=== PATIENT | male | born 1970 | race Hispanic/Latino ===

== ENCOUNTER 2022-04-18 16:19 | Emergency (ER) | payer OTHER, SELFPAY ==
[2022-04-18 16:33] VITALS: BP 117/75; PULSE 75; RESP 16; TEMP 37.2; O2SAT 97; BMI 28.8
--- NOTE | 2022-04-18 17:03 | DI.CT.S_ITS ---
PROCEDURE: CT FACIAL BONES WO CON INDICATIONS: window fell on face. TECHNIQUE: Noncontrast 2.5 mm thick axial images acquired from the mandible through the frontal sinuses, with coronal and sagittal reformatting. For radiation dose reduction, the following was used: automated exposure control, adjustment of mA and/or kV according to patient size. COMPARISON: None. FINDINGS: Image quality: Excellent. Bones and teeth: Orbital grant are intact. Sinus grant show no fracture or deformity. Nasal bones and septum are intact. Visualized portions of the mandible demonstrate no fractures or subluxation. Zygomatic arches are intact. Pterygoid plates are intact. Visualized portions of the skull base and auditory canals are intact. Dental disease and periodontal disease are noted. Degenerative changes are seen in the included spine. Sinuses: There is opacification of the right maxillary sinus. Small mucous retention cyst or polyp in the left maxillary sinus. Partial opacification of the anterior ethmoid air cells on the right. Frontal sinuses are poorly pneumatized. The sphenoid sinuses are clear. The mastoid air cells are clear. Soft tissues: Soft tissue laceration is seen along the superior aspect of the nose with surrounding subcutaneous edema. A few tiny hyperdense foci along the skin surface in the frontal region may represent skin calcifications or tiny loose bodies. No radiopaque loose body is seen in the immediate vicinity of the laceration. Vascular: Visualized vascular structures appear normal in the absence of contrast. Bony vascular foramina and canals are intact. IMPRESSION: 1. Soft tissue laceration is seen along the superior aspect of the nose. No underlying osseous fracture is seen. No radiopaque foreign body in the vicinity of the laceration. 2. Few tiny hyperdense foci along the skin surface in the left frontal scalp may represent skin calcifications or tiny foreign bodies. 3. Paranasal sinus disease. Dictated by: Mahesh Edward M.D. on 04/18/2022 at 17:36 Approved by: Mahesh Edward M.D. on 04/18/2022 at 17:41
--- NOTE | 2022-04-18 17:03 | DI.CT.S_ITS ---
PROCEDURE: CT HEAD/BRAIN WO CON INDICATIONS: window fell on face. TECHNIQUE: Noncontrast 4.5 mm thick angled axial sections acquired from the foramen magnum to the vertex, with coronal and sagittal reformats. For radiation dose reduction, the following was used: automated exposure control, adjustment of mA and/or kV according to patient size. COMPARISON: None. FINDINGS: Image quality: Excellent. CSF spaces: Basal cisterns are patent. No extra-axial fluid collections. Ventricles are normal in size and shape. Brain: No midline shift. No intracranial masses or hemorrhage. Porter-white matter interface is normal. Skull and face: Soft tissue edema is seen in the frontal scalp. Multiple small superficial hyperdense foci are seen along the skin surface in the bilateral frontal region, and small foreign bodies are not excluded. Visual bones are better demonstrated on the facial CT performed the same time. Calvarium is intact. Soft tissue laceration in the nose is partially imaged. Sinuses: There is complete opacification of the right maxillary sinus. A mucous retention cyst or polyp is seen in the left maxillary sinus. Mucosal thickening is seen in the right anterior ethmoid air cells. Frontal sinuses are poorly pneumatized. IMPRESSION: 1. No acute intracranial abnormality. 2. Mild frontal scalp soft tissue edema. Multiple hyperdense foci along the frontal skin surface may represent skin calcifications or tiny loose bodies. Dictated by: Mahesh Edward M.D. on 04/18/2022 at 17:29 Approved by: Mahesh Edward M.D. on 04/18/2022 at 17:36
[2022-04-18 20:43] VITALS: BP 117/79; PULSE 63; RESP 14; O2SAT 99
--- NOTE | 2022-04-18 22:11 | ED.WOUNDLAC ---
HPI - Wound/Laceration General Chief Complaint: Wound/Laceration Stated Complaint: facial trauma Time Seen by Provider: 04/18/22 22:11 Source: patient Mode of arrival: Ambulatory History of Present Illness HPI narrative: 52-year-old gentleman with no significant medical history was at work today helping lift window that was stacked the window slipped hitting him in the mid face. Has a large laceration over the bridge of his nose, a low-grade headache minor abrasion to the right maxilla. He does not complain of any abnormality when biting down and does not complain of maxillary pain when biting down. He notes that he has some mild musculoskeletal neck pain and points to his occipital processes bilaterally after the accident. He reports that recently he has been well with no fever, cough, chills no headaches no complaints of sinus fullness or discharge, cough abdominal pain vomiting or diarrhea. Related Data Allergies Allergy/AdvReac Type Severity Reaction Status Date / Time No Known Drug Allergies Allergy Verified 04/18/22 16:46 Review of Systems Review of Systems Narrative: Remainder of complete review of systems is otherwise unremarkable except for that included in the HPI. Patient History Social History Smoking Status: Never smoker Smoking Status: Never smoker alcohol intake frequency: 0-2 drinks per day Substance Use Type: marijuana Exam Initial Vital Signs Initial Vital Signs: Vital Signs Temperature 98.9 F 04/18/22 16:33 Pulse Rate 75 04/18/22 16:33 Respiratory Rate 16 04/18/22 16:33 Blood Pressure 117/75 04/18/22 16:33 Pulse Oximetry 97 04/18/22 16:33 Oxygen Delivery Method 04/18/22 16:33 General: Alert appropriate in no acute distress HEENT: Minor contusion and small abrasion over the forehead. 2.5 cm full-thickness laceration over the bridge of the nose with bleeding controlled. Minor abrasion over the distal portion of the nose. Minor abrasion over the right maxilla with no tenderness to the maxilla itself. Neck: Tenderness at occipital insertions bilaterally without midline C-spine tenderness. He does not have platysma muscle tenderness. Your cervical adenopathy Respiratory: Able to speak in full sentences, no obvious respiratory distress Skin: No obvious rashes, warm and dry Neurologic: Grossly intact no obvious asymmetries or abnormalities Psych: appropriate insight and affect, cooperative Procedures Laceration Repair Bridge of the nose: Time of procedure: 00:07 Site: face Size (cm): 2.5 Description: linear Depth: simple, single layer Local Anesthetic: lidocaine 1% and with epi Amount of anesthesia used (mL): 3 Pre-repair: wound explored and deep structures intact Skin layer closed with: nylon Skin layer suture size: 4-0 Number of sutures: 5 Technique: simple, interrupted Course Orders Ordered: ED Orders 04/18/22 17:03 CT facial bones wo con Stat CT head/brain wo con Stat Vital Signs Vital signs: Vital Signs - 8 hr 04/18/22 16:33 04/18/22 20:43 Temperature 98.9 F Pulse Rate 75 63 Respiratory Rate 16 14 Blood Pressure 117/75 117/79 Pulse Oximetry 97 99 Oxygen Delivery Method Room Air Room Air MDM - Wound/Laceration Imaging Data CT face and brain: Radiologist's Impression: FINDINGS:? Image quality:? Excellent.? ? Bones and teeth:? Orbital grant are intact.? Sinus grant show no fracture or deformity.? Nasal bones and septum are intact.? Visualized portions of the mandible demonstrate no fractures or subluxation.? Zygomatic arches are intact.? Pterygoid plates are intact.? Visualized portions of the skull base and auditory canals are intact.? Dental disease and periodontal disease are noted.? Degenerative changes are seen in the included spine. ? Sinuses:? There is opacification of the right maxillary sinus.? Small mucous retention cyst or polyp in the left maxillary sinus.? Partial opacification of the anterior ethmoid air cells on the right.? Frontal sinuses are poorly pneumatized.? The sphenoid sinuses are clear.? The mastoid air cells are clear.? ? Soft tissues:? Soft tissue laceration is seen along the superior aspect of the nose with surrounding subcutaneous edema.? A few tiny hyperdense foci along the skin surface in the frontal region may represent skin calcifications or tiny loose bodies.? No radiopaque loose body is seen in the immediate vicinity of the laceration.? ? Vascular:? Visualized vascular structures appear normal in the absence of contrast.? Bony vascular foramina and canals are intact.? ? IMPRESSION:? 1. Soft tissue laceration is seen along the superior aspect of the nose.? No underlying osseous fracture is seen.? No radiopaque foreign body in the vicinity of the laceration. 2. Few tiny hyperdense foci along the skin surface in the left frontal scalp may represent skin calcifications or tiny foreign bodies. 3. Paranasal sinus disease. ? ? Dictated by: Mahesh Edward M.D. on 04/18/2022 at 17:36 ? ? FINDINGS:? Image quality:? Excellent.? ? CSF spaces:? Basal cisterns are patent.? No extra-axial fluid collections.? Ventricles are normal in size and shape.? ? Brain:? No midline shift.? No intracranial masses or hemorrhage.? Porter-white matter interface is normal.? ? Skull and face:? Soft tissue edema is seen in the frontal scalp.? Multiple small superficial hyperdense foci are seen along the skin surface in the bilateral frontal region, and small foreign bodies are not excluded.? Visual bones are better demonstrated on the facial CT performed the same time.? Calvarium is intact.? Soft tissue laceration in the nose is partially imaged. ? Sinuses:? There is complete opacification of the right maxillary sinus.? A mucous retention cyst or polyp is seen in the left maxillary sinus.? Mucosal thickening is seen in the right anterior ethmoid air cells.? Frontal sinuses are poorly pneumatized. ? IMPRESSION:? 1. No acute intracranial abnormality. 2. Mild frontal scalp soft tissue edema.? Multiple hyperdense foci along the frontal skin surface may represent skin calcifications or tiny loose bodies. ? ? Dictated by: Mahesh Edward M.D. on 04/18/2022 at 17:29 ? ? [facility] Narrative Medical decision making narrative: Otherwise healthy 52-year-old gentleman with a large window hitting him mid face. The bridge of his nose laceration is repaired without difficulty. CT scan of the face and the head show no acute abnormalities. There are some chronic sinus abnormalities however he has no sinus complaints today. There is no evidence of intracranial bleeding or maxillary fractures. He did strain his neck with the fall however there is no cervical spine injury and the strain appears to be all soft tissue. Recommended sutures removed in 7 days. Questions are answered and he is safe for home discharge Discharge Plan Departure Patient Disposition: Home Clinical Impression: Laceration, Abrasion, Acute strain of neck muscle Instructions: DI for Laceration Repair, DI for Neck Sprain Activity Restrictions/Additional Instructions: Thank you for coming in today The cut on your nose should heal nicely. The stitches need to come out on April 25. The CT scan of your face an your brain show no other problems Your neck pain is likely simply from the blow to the middle of your nose. There is no evidence of injury to your spine. Using 400 mg of ibuprofen (2 [id number] pills) and 1 Tylenol every 6 hours can be very helpful in controlling pain. I have given you a couple of narcotic pain pills. If you are having worsening pain tomorrow you can use 400 mg of ibuprofen and 1 of the pain pills rather than Tylenol If you find that you are getting worse or develop any new symptoms, please feel free to return to the emergency department for further evaluation. Wil por venir hoy El janna en tu nariz deber?a sanar ernestina. Los puntos deben salir el 30 de jose. La tomograf?a computarizada de hahn ying y hahn cerebro no muestran otros problemas. Es probable que hahn dolor de jeremiah se deba simplemente al golpe en la mitad de la nariz. No hay evidencia de lesi?n en la columna. Usar 400 mg de ibuprofeno (2 pastillas de venta aric) y 1 Tylenol cada 6 horas puede ser muy ?til para controlar el dolor. Te he dado un par de analg?sicos narc?ticos. Si el dolor empeora ma?pablo, puede usar 400 mg de ibuprofeno y 1 de las pastillas para el dolor en lugar de Tylenol. Si descubre que est? empeorando o desarrolla alg?n s?ntoma nuevo, no dude en regresar al departamento de emergencias para sen evaluaci?n adicional.
[2022-04-19] MEDS: OXYCODONE/APAP 5/325 PREPACK 1 BOTTLE MISC (00:16)
[2022-04-19] MEDS: IBUPROFEN 400 MG TABLET PO (00:16)
[2022-04-19] MEDS: OXYCODONE/ACETAMINOPHEN 5/325 TABLET 1 TAB PO (00:16)
== END 2022-04-19 00:22 | disposition home or self-care (01) ==
PROVIDERS: Emergency Provider Emergency Medicine
DX: S01.21XA Laceration without foreign body of nose, initial encounter (principal); S16.1XXA Strain of muscle, fascia and tendon at neck level, initial encounter; W22.8XXA Striking against or struck by other objects, initial encounter
CPT/HCPCS: 12011; 70450; 70486; 99283